=== PATIENT | female | born 1985 | race Caucasian/White ===

== ENCOUNTER 2019-11-26 18:47 | Emergency (ER) | payer BC ==
[2019-11-26 19:24] VITALS: BP 133/77
--- NOTE | 2019-11-26 19:52 | UC ---
Laceration HPI - HPI Summary HPI Summary: Patient presents to urgent care with her for evaluation of a laceration on her occiput. Patient states around 3:30 this afternoon she was at work. Patient was standing on a table. Patient attempted to step down onto a step stool when she lost her balance falling backwards per patient struck the back of her head on a wall outlet. Patient states she didn't lose consciousness. No pain on her HEENT. Patient states she did have bleeding from the head wound. Patient states she was able to get up and get checked by coworkers pre- patient then went home and took a shower. After the shower her looked at it and thought she should get it checked. Patient states she feels mildly achy but did take some ibuprofen. Patient without any other complaints. The patient states no extremity weakness. No neck or back pain. No paresthesias. No chest pain shortness of breath nausea. Patient is not on anticoagulation. Patient states her last tetanus was 9-10 years ago. Patient's medications as ordered and the EMR by triage nurse reviewed this visit. - History Of Current Complaint Chief Complaint: UCLaceration Stated Complaint: BACK OF HEAD LACERATION Time Seen by Provider: 11/26/19 19:49 Hx Obtained From: Patient Laceration Location: Occipital Pain Intensity: 4 - Allergies/Home Medications Allergies/Adverse Reactions: Allergies Allergy/AdvReac Type Severity Reaction Status Date / Time amoxicillin Allergy Hives Verified 11/26/19 19:20 Home Medications: Home Medications Ibuprofen TAB* [Motrin TAB* 400 MG] 400 mg PO Q6H PRN 11/26/19 [History Confirmed 11/26/19] PMH/Surg Hx/FS Hx/Imm Hx Previously Healthy: Yes - Surgical History Surgical History: None - Family History Known Family History: Positive: Non-Contributory - Social History Occupation: Employed Full-time Lives: With Family Alcohol Use: Occasionally Substance Use Type: Marijuana Substance Use Comment - Amount & Last Used: 4 times weekly Smoking Status (MU): Current Some Day Smoker Amount Used/How Often: socially Review of Systems All Other Systems Reviewed And Are Negative: Yes Constitutional: Positive: Negative Skin: Positive: Other - Laceration occipital area ENT: Positive: Negative Physical Exam - Summary Physical Exam Summary: Vital Signs Reviewed: Yes A+Ox3, no distress Eyes: Conjunctiva Clear, DOMENIC. EOM intact and full ENT: Hearing grossly normal TM x 2 clear no hemo tymp, no septal hematoma, mmoist, uvula midline, no exudate, no erythema Neck: Positive: Supple Respiratory: Positive: No respiratory distress, No accessory muscle use + CTA throughout no w/r Cardiovascular: RRR nl s1, s2 no m/r CBT <2 sec abd soft + BS nt/nd no guarding, no distension Musculoskeletal Exam: CORNELL x 4 without difficulty Strength Intact, ROM Intact Neurological: Positive: Alert, + sensation throughout Psychological: Positive: Normal Response To examiner Skin: Positive: no rash, no ecchymosis, occiptal laceration, 5cm Triage Information Reviewed: Yes Vital Signs: Initial Vital Signs Temp 98.1 F 11/26/19 19:22 Pulse 76 11/26/19 19:22 Resp 15 11/26/19 19:22 BP 133/77 11/26/19 19:22 Pulse Ox 100 11/26/19 19:22 Laceration Repair - Laceration Repair 1 Procedure Summary: verbal permission to treat time out completed with RN at bedside pt prepped in usual, sterile fashion copious irrigation with 500ml sterile saline under pressure pt tolerated well reviewed with pt wound care s/s infection return precautions Description: Linear Laceration Size After Repair: Length (cm) - 5 Type Injection: Local Anesthesia Used: 1.0% Lido Additive Used (in ml): Epi - 3.5ml Irrigation With Pressure Irrigation Device: Yes Closure Material: Sutures - 7 simple interrupted 4-0 prolene Closure Method: Single Layer Suture Of: Skin Suture Type: Prolene Laceration Course/Dx - Course/Dx Course Of Treatment: Patient presents to urgent care with a scalp wound if she she fell approximately 3:30 today. Patient did not lose consciousness. Patient is not anticoagulated. He is complaining only of some mild body aches and pain at the site of the wound. Patient with a 5 cm V-shaped laceration on her occiput. After discussion with patient and . Will irrigate anesthetize and close wound. The superior margin is slightly deeper than the inferior margin so will use sutures in place of geovany. Patient tolerated procedure well. Timeout was nurse. Patient also given a booster. Discussed with patient and signs and symptoms of concussion return precaution. No imaging performed today. Patient comfortable and agreeable with plan. - Diagnosis Provider Diagnosis: Scalp laceration Discharge ED - Sign-Out/Discharge Documenting (check all that apply): Patient Departure All imaging exams completed and their final reports reviewed: No Studies - Discharge Plan Condition: Stable Disposition: HOME Patient Education Materials: Diphtheria/Acellular Pertussis/Tetanus Booster Vaccine (By injection), Laceration (ED), Head Injury (ED) Referrals: Igor Waddell MD [Medical Doctor] - No Primary Care Phys,NOPCP [Primary Care Provider] - Additional Instructions: - your stitches should come out in 7 days - you can return here, go to your Doctor, contact the occupational medicine provider, or any urgent care center - Okay to alternate ibuprofen (Advil, Motrin) and Tylenol (acetaminophen) every 3 hours for pain or fever. Take with food. Do NOT take for more than 4-5 days. -Anticipate increased discomfort over the next several hours as the numbing medication wears off -Keep your wound clean and dry - no soaking for 24 hours. Then, okay for wound to get wet - pat dry, don't rub -apply a thin layer of antibiotic ointment (neosporin, polysporin) 2-3 times a day - Contact your doctor or return here with questions or concerns You also received a tetanus vaccination today - your arm will likely be sore tomorrow - this is normal. okay to take pain medication as noted above - Billing Disposition and Condition Condition: STABLE Disposition: Home
[2019-11-26] MEDS ORDERED: Tetan/Diph/Pertus SYR(Tdap)* 0.5 ML SYR(BOOSTRIX) use SYR contains LATEX IM ONE (20:05)
[2019-11-26] MEDS ORDERED: Lidocaine 2% w EPI 1:100,000* 20 ML MDV VIAL INJ ONE (20:06)
== END 2019-11-26 21:01 | disposition home or self-care (01) ==
LOC: UCCORT 18:47
DX: S01.01XA Laceration without foreign body of scalp, initial encounter (principal); F17.200 Nicotine dependence, unspecified, uncomplicated; Z88.0 Allergy status to penicillin; W17.89XA Other fall from one level to another, initial encounter; W22.01XA Walked into wall, initial encounter; Y92.9 Unspecified place or not applicable
CPT/HCPCS: 12002; 90471; 90715; 99201; G0463

== ENCOUNTER 2019-12-03 15:40 | Emergency (ER) | payer BC, OTHER ==
[2019-12-03 16:28] VITALS: BP 128/86
--- NOTE | 2019-12-03 16:45 | UC ---
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 Here for stitches removal. No signs of infection noted. " -7 simple stitches placed. no bleeding. healing nciely. not painful. no complications -had tetanus updated. note reviewed. - History Of Current Complaint Chief Complaint: UCGeneralIllness Stated Complaint: STITCH REMOVAL-DONE HERE Time Seen by Provider: 12/03/19 16:33 Pain Intensity: 0 - Allergies/Home Medications Allergies/Adverse Reactions: Allergies Allergy/AdvReac Type Severity Reaction Status Date / Time amoxicillin Allergy Hives Verified 12/03/19 16:24 Home Medications: Home Medications NK [No Home Medications Reported] 12/03/19 [History Confirmed 12/03/19] PMH/Surg Hx/FS Hx/Imm Hx Previously Healthy: Yes - Surgical History Surgical History: None - Family History Known Family History: Positive: Non-Contributory - Social History Alcohol Use: Occasionally Substance Use Type: Marijuana Substance Use Comment - Amount & Last Used: 4 times weekly Smoking Status (MU): Current Some Day Smoker Amount Used/How Often: socially Review of Systems All Other Systems Reviewed And Are Negative: Yes Constitutional: Positive: Negative Skin: Positive: Other - see above Respiratory: Positive: Negative Cardiovascular: Positive: Negative Motor: Positive: Negative Neurovascular: Positive: Negative Musculoskeletal: Positive: Negative Neurological: Positive: Negative Is Patient Immunocompromised?: No Physical Exam Triage Information Reviewed: Yes Appearance: Well-Appearing, No Pain Distress, Well-Nourished - good historian. very pleasant Vital Signs: Initial Vital Signs Temp 99.2 F 12/03/19 16:24 Pulse 75 12/03/19 16:24 Resp 16 12/03/19 16:24 BP 128/86 12/03/19 16:24 Pulse Ox 100 12/03/19 16:24 Eye Exam: Normal Skin: Positive: Other - occiput - well healing 5 cm wound w/ 7 sutures intact. no bleeding. no erythema/discharge Course/Dx - Course Course Of Treatment: 7 sutures removed easily w.o bleeding. tolerated well. - Differential Dx - Laceration/Wound Differential Diagnoses: Suture Removal - Diagnosis Provider Diagnosis: Encounter for removal of sutures Discharge ED - Sign-Out/Discharge Documenting (check all that apply): Patient Departure All imaging exams completed and their final reports reviewed: No Studies - Discharge Plan Condition: Stable Disposition: HOME Patient Education Materials: Stitches Removal (ED) Referrals: No Primary Care Phys,NOPCP [Primary Care Provider] - - Billing Disposition and Condition Condition: STABLE Disposition: Home
== END 2019-12-03 16:59 | disposition home or self-care (01) ==
LOC: UCCORT 15:40
DX: S01.91XD Laceration without foreign body of unspecified part of head, subsequent encounter (principal); F17.210 Nicotine dependence, cigarettes, uncomplicated; X58.XXXD Exposure to other specified factors, subsequent encounter; Z88.0 Allergy status to penicillin